=== PATIENT | male | born 1985 | race Caucasian/White ===

== ENCOUNTER 2017-10-19 23:39 | Emergency (ER) | payer SELFPAY, OTHER | END 2017-10-20 03:30 | disposition left against medical advice (07) | LOC: FTE 23:39 | DX: Z53.21 Procedure and treatment not carried out due to patient leaving prior to being seen by health care provider (principal) ==

== ENCOUNTER 2018-05-18 22:02 | Emergency (ER) | payer OTHER ==
[2018-05-19 02:09] LABS: ADD MAN DIFF? NO
[2018-05-19] MEDS: KETOROLAC 60 MG INJ IM (02:09)
[2018-05-19 02:13] LABS: BASOPHILS % 0.3 % (0.0-2.0); EOSINOPHILS % 0.1 % (0.0-7.0); HEMATOCRIT 45.1 % (42.0-52.0); HEMOGLOBIN 15.5 g/dl (14.0-18.0); LYMPHOCYTES # 1.4 10^3/ul (0.8-2.9); LYMPHOCYTES % 10.6 % (15.0-51.0); MEAN CORPUSCULAR HEMOGLOBIN 30.8 pg (29.0-33.0); MEAN CORPUSCULAR HGB CONC 34.4 g/dl (32.0-37.0); MEAN CORPUSCULAR VOLUME 89.5 fl (82.0-101.0); MEAN PLATELET VOLUME 10.9 fl (7.4-10.4); MONOCYTES % 7.5 % (0.0-11.0); NEUTROPHIL # 10.5 10^3/ul (1.6-7.5); NEUTROPHILS % 81.1 % (39.0-77.0); PLATELET COUNT 191 10^3/UL (140-415); RED BLOOD COUNT 5.04 10^6/ul (4.70-6.10); RED CELL DISTRIBUTION WIDTH 12.2 % (11.5-14.5)
[2018-05-19 02:15] LABS: ADD UMIC NO; UR ASCORBIC ACID NEGATIVE (NEGATIVE); UR BILIRUBIN (Dip) NEGATIVE (NEGATIVE); UR BLOOD (Dip) NEGATIVE (NEGATIVE); UR CLARITY CLEAR (CLEAR); UR COLOR STRAW (YELLOW); UR GLUCOSE (Dip) NEGATIVE (NEGATIVE); UR KETONES (Dip) 2+ mg/dL (NEGATIVE); UR LEUKOCYTE ESTERASE (Dip) NEGATIVE Leu/ul (NEGATIVE); UR NITRITE (Dip) NEGATIVE (NEGATIVE); UR SPECIFIC GRAVITY (Dip) 1.012 (1.003-1.030); UR TOTAL PROTEIN (Dip) NEGATIVE (NEGATIVE); UR UROBILINOGEN (Dip) NEGATIVE (NEGATIVE)
[2018-05-19 02:34] LABS: ALANINE AMINOTRANSFERASE 26 IU/L (13-69); ALBUMIN/GLOBULIN RATIO 1.38; ALKALINE PHOSPHATASE 75 IU/L (42-121); ANION GAP 18 (8-16); ASPARTATE AMINO TRANSFERASE 26 IU/L (15-46); BILIRUBIN,INDIRECT 2.2 mg/dl (0-1.1); BILIRUBIN,TOTAL 2.2 mg/dl (0.2-1.3); BLOOD UREA NITROGEN 18 mg/dl (7-20); CALCIUM 9.8 mg/dl (8.4-10.2); CARBON DIOXIDE 26 mmol/L (21-31); CHLORIDE 101 mmol/L (97-110); CREATININE 1.27 mg/dl (0.61-1.24); GLUCOSE 112 mg/dl (70-220); LIPASE 37 U/L (23-300); POTASSIUM 4.4 mmol/L (3.5-5.1); SODIUM 141 mmol/L (135-144); TOTAL PROTEIN 8.6 g/dl (6.1-8.1)
== END 2018-05-19 04:19 | disposition home or self-care (01) ==
LOC: FTE 22:02
DX: N13.2 Hydronephrosis with renal and ureteral calculous obstruction (principal)
CPT/HCPCS: 36415; 74176; 80053; 81003; 83690; 85025; 96372; 99285-25

== ENCOUNTER 2018-08-15 05:06 | Inpatient (IN) | payer OTHER ==
[2018-08-15] MEDS: HYDROCODONE/APAP (5/325) TAB PO ×2 (06:55→20:54)
[2018-08-15] MEDS ORDERED: NACL 0.9% 3 ML SYG IV (07:00)
[2018-08-15] MEDS ORDERED: ONDANSETRON 4 MG INJ IV (07:00)
[2018-08-15] MEDS ORDERED: PHENAZOPYRIDINE 200 MG TAB PO (07:00)
[2018-08-15] MEDS ORDERED: ACETAMINOPHEN 650 MG SUPP PR (07:00)
[2018-08-15] MEDS: DEXTROSE 5%-0.45% NACL 1,000 ML IV (07:36)
[2018-08-15] MEDS: CEFTRIAXONE 1 GM/50 ML (PMX) 50 ML IVPB (07:37)
[2018-08-15 07:48] LABS: ADD MAN DIFF? NO
[2018-08-15 07:51] LABS: BASOPHILS % 0.4 % (0.0-2.0); EOSINOPHILS # 0.1 10^3/ul (0.0-0.5); EOSINOPHILS % 0.5 % (0.0-7.0); HEMATOCRIT 39.4 % (42.0-52.0); HEMOGLOBIN 13.4 g/dl (14.0-18.0); LYMPHOCYTES # 1.8 10^3/ul (0.8-2.9); MEAN CORPUSCULAR HEMOGLOBIN 30.4 pg (29.0-33.0); MEAN CORPUSCULAR VOLUME 89.3 fl (82.0-101.0); MEAN PLATELET VOLUME 10.8 fl (7.4-10.4); MONOCYTE # 0.9 10^3/ul (0.3-0.9); MONOCYTES % 8.7 % (0.0-11.0); NEUTROPHIL # 7.2 10^3/ul (1.6-7.5); PLATELET COUNT 166 10^3/UL (140-415); RED BLOOD COUNT 4.41 10^6/ul (4.70-6.10); RED CELL DISTRIBUTION WIDTH 12.6 % (11.5-14.5)
[2018-08-15 08:14] LABS: ALANINE AMINOTRANSFERASE 17 IU/L (13-69); ALBUMIN 4.3 g/dl (3.3-4.9); ALBUMIN/GLOBULIN RATIO 1.79; ALKALINE PHOSPHATASE 64 IU/L (42-121); ANION GAP 9 (5-13); ASPARTATE AMINO TRANSFERASE 18 IU/L (15-46); BILIRUBIN,INDIRECT 1.9 mg/dl (0-1.1); BILIRUBIN,TOTAL 1.9 mg/dl (0.2-1.3); BLOOD UREA NITROGEN 15 mg/dl (7-20); CALCIUM 9.2 mg/dl (8.4-10.2); CARBON DIOXIDE 29 mmol/L (21-31); CHLORIDE 104 mmol/L (97-110); CREATININE 1.27 mg/dl (0.61-1.24); Estimated GFR > 60 mL/min (>60); GLUCOSE 96 mg/dl (70-220); POTASSIUM 3.8 mmol/L (3.5-5.1); SODIUM 142 mmol/L (135-144); TOTAL PROTEIN 6.7 g/dl (6.1-8.1)
[2018-08-15] MEDS ORDERED: HEPARIN 5,000 UNIT/0.5 ML VIAL ×2 (08:23→19:41)
[2018-08-15] MEDS: HEPARIN 5,000 UNIT/1 ML VIAL SC ×2 (08:42→21:00)
[2018-08-15 10:10] LABS: ADD UMIC NO; UR ASCORBIC ACID NEGATIVE (NEGATIVE); UR BILIRUBIN (Dip) NEGATIVE (NEGATIVE); UR BLOOD (Dip) NEGATIVE (NEGATIVE); UR CLARITY CLEAR (CLEAR); UR COLOR STRAW (YELLOW); UR GLUCOSE (Dip) NEGATIVE (NEGATIVE); UR KETONES (Dip) 1+ mg/dL (NEGATIVE); UR LEUKOCYTE ESTERASE (Dip) NEGATIVE Leu/ul (NEGATIVE); UR NITRITE (Dip) NEGATIVE (NEGATIVE); UR SPECIFIC GRAVITY (Dip) 1.009 (1.003-1.030); UR TOTAL PROTEIN (Dip) NEGATIVE (NEGATIVE); UR UROBILINOGEN (Dip) NEGATIVE (NEGATIVE)
[2018-08-15 11:58] LABS: INR 1.03; PARTIAL THROMBOPLASTIN TIME 30.9 Sec (23.0-35.0); PROTIME 13.6 Sec (11.9-14.9); PT RATIO 1.1
[2018-08-15] MEDS: DEXTROSE 5%-LR 1,000 ML IV ×3 (13:27→20:54)
[2018-08-15] MEDS: TAMSULOSIN (SR) 0.4 MG CAP PO (20:53)
[2018-08-16] MEDS: DEXTROSE 5%-LR 1,000 ML IV ×3 (03:52→21:35)
[2018-08-16 05:08] LABS: ADD MAN DIFF? NO
[2018-08-16 05:25] LABS: BASOPHILS % 0.5 % (0.0-2.0); EOSINOPHILS # 0.1 10^3/ul (0.0-0.5); EOSINOPHILS % 2.1 % (0.0-7.0); HEMATOCRIT 35.3 % (42.0-52.0); HEMOGLOBIN 12.1 g/dl (14.0-18.0); LYMPHOCYTES % 32.3 % (15.0-51.0); MEAN CORPUSCULAR HEMOGLOBIN 31.2 pg (29.0-33.0); MEAN CORPUSCULAR HGB CONC 34.3 g/dl (32.0-37.0); MEAN PLATELET VOLUME 11.1 fl (7.4-10.4); MONOCYTE # 0.5 10^3/ul (0.3-0.9); MONOCYTES % 8.7 % (0.0-11.0); NEUTROPHIL # 3.5 10^3/ul (1.6-7.5); NEUTROPHILS % 56.1 % (39.0-77.0); PLATELET COUNT 161 10^3/UL (140-415); RED BLOOD COUNT 3.88 10^6/ul (4.70-6.10); RED CELL DISTRIBUTION WIDTH 12.8 % (11.5-14.5)
[2018-08-16 05:25] LABS: WHITE BLOOD COUNT 6.2 10^3/ul (4.8-10.8)
[2018-08-16 05:44] LABS: ANION GAP 8 (5-13); BLOOD UREA NITROGEN 11 mg/dl (7-20); CALCIUM 8.6 mg/dl (8.4-10.2); CARBON DIOXIDE 28 mmol/L (21-31); CHLORIDE 108 mmol/L (97-110); CREATININE 0.98 mg/dl (0.61-1.24); Estimated GFR > 60 mL/min (>60); GLUCOSE 99 mg/dl (70-220); MAGNESIUM 2.1 mg/dl (1.7-2.5); PHOSPHORUS 4.6 mg/dl (2.5-4.9); POTASSIUM 4.1 mmol/L (3.5-5.1); SODIUM 144 mmol/L (135-144)
[2018-08-16] MEDS: CEFTRIAXONE 1 GM/50 ML (PMX) 50 ML IVPB (06:03)
[2018-08-16] MEDS: HEPARIN 5,000 UNIT/1 ML VIAL SC ×2 (09:00→21:00)
[2018-08-16] MEDS: HYDROCODONE/APAP (5/325) TAB PO ×3 (12:08→21:18)
[2018-08-16] MEDS: AMPICILLIN/SULB 3 GM/NS (PMX) 100 ML IVPB ×2 (14:11→18:33)
[2018-08-16] MEDS: CIPROFLOXACIN 400MG/D5W 200 ML IVPB ×2 (15:41→22:47)
[2018-08-16] MEDS: TAMSULOSIN (SR) 0.4 MG CAP PO (21:18)
[2018-08-17] MEDS: AMPICILLIN/SULB 3 GM/NS (PMX) 100 ML IVPB ×3 (00:34→11:46)
[2018-08-17] MEDS: DEXTROSE 5%-LR 1,000 ML IV ×3 (00:39→17:55)
[2018-08-17] MEDS: HYDROCODONE/APAP (5/325) TAB PO (06:01)
[2018-08-17] MEDS: HEPARIN 5,000 UNIT/1 ML VIAL SC ×2 (09:00→20:17)
[2018-08-17] MEDS: CIPROFLOXACIN 400MG/D5W 200 ML IVPB (09:24)
[2018-08-17] MEDS: DOCUSATE SODIUM 100 MG CAP PO (20:17)
[2018-08-17] MEDS: POLYETHYLENE GLYCOL 17 GM PACKET PO (20:18)
[2018-08-17] MEDS: TAMSULOSIN (SR) 0.4 MG CAP PO (21:00)
[2018-08-18] MEDS: DEXTROSE 5%-LR 1,000 ML IV ×5 (00:30→20:30)
[2018-08-18 05:44] LABS: ADD MAN DIFF? NO
[2018-08-18 05:46] LABS: WHITE BLOOD COUNT 5.8 10^3/ul (4.8-10.8)
[2018-08-18 05:46] LABS: BASOPHILS % 0.7 % (0.0-2.0); EOSINOPHILS # 0.2 10^3/ul (0.0-0.5); EOSINOPHILS % 3.1 % (0.0-7.0); HEMATOCRIT 37.7 % (42.0-52.0); LYMPHOCYTES # 1.7 10^3/ul (0.8-2.9); LYMPHOCYTES % 28.6 % (15.0-51.0); MEAN CORPUSCULAR HEMOGLOBIN 31.2 pg (29.0-33.0); MEAN CORPUSCULAR HGB CONC 34.5 g/dl (32.0-37.0); MEAN CORPUSCULAR VOLUME 90.4 fl (82.0-101.0); MEAN PLATELET VOLUME 10.6 fl (7.4-10.4); MONOCYTE # 0.4 10^3/ul (0.3-0.9); MONOCYTES % 7.6 % (0.0-11.0); NEUTROPHIL # 3.5 10^3/ul (1.6-7.5); NEUTROPHILS % 59.8 % (39.0-77.0); PLATELET COUNT 177 10^3/UL (140-415); RED BLOOD COUNT 4.17 10^6/ul (4.70-6.10); RED CELL DISTRIBUTION WIDTH 12.3 % (11.5-14.5)
[2018-08-18] MEDS: HYDROCODONE/APAP (5/325) TAB PO ×2 (06:03→23:05)
[2018-08-18 06:34] LABS: MAGNESIUM 1.8 mg/dl (1.7-2.5)
[2018-08-18 06:34] LABS: PHOSPHORUS 4.6 mg/dl (2.5-4.9)
[2018-08-18 06:35] LABS: ANION GAP 7 (5-13); BLOOD UREA NITROGEN 7 mg/dl (7-20); CALCIUM 9.1 mg/dl (8.4-10.2); CARBON DIOXIDE 35 mmol/L (21-31); CHLORIDE 100 mmol/L (97-110); CREATININE 0.91 mg/dl (0.61-1.24); Estimated GFR > 60 mL/min (>60); GLUCOSE 101 mg/dl (70-220); SODIUM 142 mmol/L (135-144)
[2018-08-18] MEDS: POLYETHYLENE GLYCOL 17 GM PACKET PO ×2 (08:23→22:55)
[2018-08-18] MEDS: DOCUSATE SODIUM 100 MG CAP PO ×2 (08:23→23:05)
[2018-08-18] MEDS: HEPARIN 5,000 UNIT/1 ML VIAL SC ×2 (08:24→21:00)
[2018-08-18] MEDS ORDERED: HEPARIN 5,000 UNIT/0.5 ML VIAL (19:32)
[2018-08-18] MEDS ORDERED: MEPERIDINE 25 MG INJ IV (20:00)
[2018-08-18] MEDS ORDERED: ONDANSETRON 4 MG INJ IV (20:00)
[2018-08-18] MEDS ORDERED: FENTAnyl 50 MCG/ML VIAL IV ×3 (20:00)
[2018-08-18] MEDS ORDERED: LABETALOL HCL 20MG INJ IV (20:00)
[2018-08-18] MEDS ORDERED: DIPHENHYDRAMINE 50 MG INJ IV (20:00)
[2018-08-18] MEDS ORDERED: HYDROmorphONE 1 MG/5 ML IV SYRINGE IV ×3 (20:00)
[2018-08-18] MEDS ORDERED: hydrALAzine 20 MG INJ IV (20:00)
[2018-08-18] MEDS ORDERED: PROPOFOL 20 ML (20:18)
[2018-08-18] MEDS ORDERED: MIDAZOLAM 1 MG/ML 2 ML INJ (20:18)
[2018-08-18] MEDS ORDERED: CEFAZOLIN 1 GM INJ (20:18)
[2018-08-18] MEDS ORDERED: FENTAnyl 50 MCG/ML VIAL ×2 (20:18→20:58)
[2018-08-18] MEDS ORDERED: KETOROLAC 30 MG INJ (20:59)
[2018-08-18] MEDS ORDERED: ONDANSETRON 4 MG INJ (20:59)
[2018-08-18] MEDS ORDERED: METOCLOPRAMIDE 10 MG INJ (21:00)
[2018-08-18] MEDS ORDERED: DEXAMETHASONE 4 MG/ML 1 ML INJ (21:00)
[2018-08-18] MEDS: SOD CHLORIDE 0.9% 1,000 ML IV (23:05)
[2018-08-19] MEDS ORDERED: HEPARIN 5,000 UNIT/0.5 ML VIAL (08:45)
[2018-08-19] MEDS: HEPARIN 5,000 UNIT/1 ML VIAL SC ×2 (08:56→20:16)
[2018-08-19] MEDS: morphine 2 MG INJ IV ×3 (08:57→20:16)
[2018-08-19] MEDS: POLYETHYLENE GLYCOL 17 GM PACKET PO ×2 (09:00→20:15)
[2018-08-19] MEDS: DOCUSATE SODIUM 100 MG CAP PO ×2 (09:00→20:15)
[2018-08-19] MEDS: SOD CHLORIDE 0.9% 1,000 ML IV (12:57)
[2018-08-19] MEDS: KETOROLAC 30 MG INJ IV ×2 (12:59→20:17)
[2018-08-19 15:17] LABS: ADD MAN DIFF? NO
[2018-08-19 15:25] LABS: BASOPHILS % 0.2 % (0.0-2.0); HEMATOCRIT 39.9 % (42.0-52.0); HEMOGLOBIN 13.9 g/dl (14.0-18.0); LYMPHOCYTES # 1.2 10^3/ul (0.8-2.9); LYMPHOCYTES % 7.8 % (15.0-51.0); MEAN CORPUSCULAR HGB CONC 34.8 g/dl (32.0-37.0); MEAN CORPUSCULAR VOLUME 89.1 fl (82.0-101.0); MEAN PLATELET VOLUME 10.8 fl (7.4-10.4); MONOCYTE # 0.8 10^3/ul (0.3-0.9); MONOCYTES % 4.8 % (0.0-11.0); NEUTROPHIL # 13.8 10^3/ul (1.6-7.5); NEUTROPHILS % 86.7 % (39.0-77.0); PLATELET COUNT 201 10^3/UL (140-415); RED BLOOD COUNT 4.48 10^6/ul (4.70-6.10)
[2018-08-19 15:42] LABS: ANION GAP 12 (5-13); BLOOD UREA NITROGEN 15 mg/dl (7-20); CALCIUM 9.1 mg/dl (8.4-10.2); CARBON DIOXIDE 25 mmol/L (21-31); CHLORIDE 105 mmol/L (97-110); CREATININE 0.82 mg/dl (0.61-1.24); Estimated GFR > 60 mL/min (>60); GLUCOSE 126 mg/dl (70-220); SODIUM 142 mmol/L (135-144)
[2018-08-19 15:51] LABS: MAGNESIUM 1.8 mg/dl (1.7-2.5)
[2018-08-19 15:51] LABS: PHOSPHORUS 3.7 mg/dl (2.5-4.9)
[2018-08-20] MEDS: morphine 2 MG INJ IV ×2 (00:30→08:28)
[2018-08-20] MEDS: SOD CHLORIDE 0.9% 1,000 ML IV (02:15)
[2018-08-20] MEDS: KETOROLAC 30 MG INJ IV ×2 (02:15→08:29)
[2018-08-20] MEDS ORDERED: HEPARIN 5,000 UNIT/0.5 ML VIAL (07:53)
[2018-08-20] MEDS: POLYETHYLENE GLYCOL 17 GM PACKET PO (08:29)
[2018-08-20] MEDS: DOCUSATE SODIUM 100 MG CAP PO (08:29)
[2018-08-20] MEDS: HEPARIN 5,000 UNIT/1 ML VIAL SC (08:41)
== END 2018-08-20 13:25 | disposition home or self-care (01) | DRG 660 ==
LOC: PP2 05:06
PROC: 0TC68ZZ Extirpation of Matter from Right Ureter, Via Natural or Artificial Opening Endoscopic (ICD-10-PCS; 2018-08-18 17:30)
PROC: 0T768DZ Dilation of Right Ureter with Intraluminal Device, Via Natural or Artificial Opening Endoscopic (ICD-10-PCS; principal; 2018-08-18 20:31)
DX: N20.2 Calculus of kidney with calculus of ureter (principal); N17.9 Acute kidney failure, unspecified; N39.0 Urinary tract infection, site not specified; B95.2 Enterococcus as the cause of diseases classified elsewhere
CPT/HCPCS: 71045; 74018; 74430; 80048; 80053; 81003; 83735; 84100; 85025; 85610; 85730; 87086; 88300

== ENCOUNTER 2018-08-25 04:30 | Emergency (ER) | payer OTHER ==
[2018-08-25] MEDS: SOD CHLORIDE 0.9% 1,000 ML IV (05:26)
[2018-08-25] MEDS: ONDANSETRON 4 MG INJ IV (05:27)
[2018-08-25] MEDS: morphine 4 MG/ML VIAL IV (05:27)
[2018-08-25 05:38] LABS: ADD MAN DIFF? NO
[2018-08-25 05:49] LABS: BASOPHILS % 0.5 % (0.0-2.0); EOSINOPHILS # 0.1 10^3/ul (0.0-0.5); EOSINOPHILS % 1.9 % (0.0-7.0); HEMATOCRIT 40.1 % (42.0-52.0); LYMPHOCYTES # 1.4 10^3/ul (0.8-2.9); LYMPHOCYTES % 23.8 % (15.0-51.0); MEAN CORPUSCULAR HEMOGLOBIN 31.3 pg (29.0-33.0); MEAN CORPUSCULAR HGB CONC 34.9 g/dl (32.0-37.0); MEAN CORPUSCULAR VOLUME 89.5 fl (82.0-101.0); MEAN PLATELET VOLUME 11.2 fl (7.4-10.4); MONOCYTE # 0.5 10^3/ul (0.3-0.9); MONOCYTES % 8.6 % (0.0-11.0); NEUTROPHIL # 3.9 10^3/ul (1.6-7.5); NEUTROPHILS % 64.9 % (39.0-77.0); POSITIVE DIFF @See below; RED BLOOD COUNT 4.48 10^6/ul (4.70-6.10); RED CELL DISTRIBUTION WIDTH 12.6 % (11.5-14.5)
[2018-08-25 05:49] LABS: WHITE BLOOD COUNT 5.9 10^3/ul (4.8-10.8)
[2018-08-25 05:56] LABS: PLATELET COUNT 148 10^3/UL (140-415)
[2018-08-25 06:39] LABS: ALANINE AMINOTRANSFERASE 21 IU/L (13-69); ALBUMIN 4.2 g/dl (3.3-4.9); ALBUMIN/GLOBULIN RATIO 1.55; ALKALINE PHOSPHATASE 63 IU/L (42-121); ANION GAP 10 (5-13); ASPARTATE AMINO TRANSFERASE 20 IU/L (15-46); BILIRUBIN,INDIRECT 1.3 mg/dl (0-1.1); BILIRUBIN,TOTAL 1.3 mg/dl (0.2-1.3); BLOOD UREA NITROGEN 20 mg/dl (7-20); CALCIUM 8.8 mg/dl (8.4-10.2); CARBON DIOXIDE 29 mmol/L (21-31); CHLORIDE 105 mmol/L (97-110); CREATININE 1.05 mg/dl (0.61-1.24); Estimated GFR > 60 mL/min (>60); GLUCOSE 95 mg/dl (70-220); LIPASE 67 U/L (23-300); POTASSIUM 4.2 mmol/L (3.5-5.1); SODIUM 144 mmol/L (135-144); TOTAL PROTEIN 6.9 g/dl (6.1-8.1)
== END 2018-08-25 09:57 | disposition home or self-care (01) ==
LOC: E/R 04:30
DX: R10.9 Unspecified abdominal pain (principal)
CPT/HCPCS: 36415; 74176; 76856; 80053; 83690; 85025; 96374; 96375; 99285-25

== ENCOUNTER 2018-08-30 10:11 | Emergency (ER) | payer OTHER ==
[2018-08-30 11:04] LABS: URINE BLOOD (Dip) POC Trace-intact (NEGATIVE); URINE GLUCOSE (Dip) POC Negative (NEGATIVE); URINE KETONES (Dip) POC Negative (NEGATIVE); URINE LEUKOCYTE EST (Dip) POC Negative (NEGATIVE); URINE NITRITE (Dip) POC Negative (NEGATIVE); URINE TOTAL PROTEIN POC Negative (NEGATIVE)
[2018-08-30] MEDS: DEXAMETHASONE 10 MG/ML 1 ML INJ IV (11:05)
[2018-08-30] MEDS: DIPHENHYDRAMINE 50 MG INJ IV (11:05)
== END 2018-08-30 12:11 | disposition home or self-care (01) ==
LOC: FTE 10:11
DX: L29.9 Pruritus, unspecified (principal); T36.8X5A Adverse effect of other systemic antibiotics, initial encounter
CPT/HCPCS: 81003; 96374; 96375; 99284-25

== ENCOUNTER 2018-10-16 20:24 | Emergency (ER) | payer OTHER ==
[2018-10-16] MEDS: ONDANSETRON 4 MG INJ IV (21:30)
[2018-10-16] MEDS: morphine 4 MG/ML VIAL IV (21:30)
[2018-10-16] MEDS: SOD CHLORIDE 0.9% 1,000 ML IV (21:30)
[2018-10-16] MEDS: KETOROLAC 30 MG INJ IV (21:30)
[2018-10-16 21:32] LABS: ADD MAN DIFF? NO
[2018-10-16 21:34] LABS: WHITE BLOOD COUNT 7.4 10^3/ul (4.8-10.8)
[2018-10-16 21:34] LABS: BASOPHIL # 0.1 10^3/ul (0.0-0.1); BASOPHILS % 0.7 % (0.0-2.0); EOSINOPHILS # 0.1 10^3/ul (0.0-0.5); EOSINOPHILS % 0.8 % (0.0-7.0); HEMATOCRIT 43.6 % (42.0-52.0); HEMOGLOBIN 14.9 g/dl (14.0-18.0); LYMPHOCYTES # 2.3 10^3/ul (0.8-2.9); LYMPHOCYTES % 30.2 % (15.0-51.0); MEAN CORPUSCULAR HGB CONC 34.2 g/dl (32.0-37.0); MEAN CORPUSCULAR VOLUME 90.6 fl (82.0-101.0); MEAN PLATELET VOLUME 10.7 fl (7.4-10.4); MONOCYTE # 0.7 10^3/ul (0.3-0.9); NEUTROPHIL # 4.4 10^3/ul (1.6-7.5); PLATELET COUNT 210 10^3/UL (140-415); RED BLOOD COUNT 4.81 10^6/ul (4.70-6.10); RED CELL DISTRIBUTION WIDTH 12.7 % (11.5-14.5)
[2018-10-16 21:37] LABS: ADD UMIC NO; UR ASCORBIC ACID NEGATIVE (NEGATIVE); UR BILIRUBIN (Dip) NEGATIVE (NEGATIVE); UR BLOOD (Dip) NEGATIVE (NEGATIVE); UR CLARITY CLEAR (CLEAR); UR COLOR YELLOW (YELLOW); UR GLUCOSE (Dip) NEGATIVE (NEGATIVE); UR KETONES (Dip) NEGATIVE (NEGATIVE); UR LEUKOCYTE ESTERASE (Dip) NEGATIVE Leu/ul (NEGATIVE); UR NITRITE (Dip) NEGATIVE (NEGATIVE); UR SPECIFIC GRAVITY (Dip) 1.015 (1.003-1.030); UR TOTAL PROTEIN (Dip) NEGATIVE (NEGATIVE); UR UROBILINOGEN (Dip) 1+ mg/dL (NEGATIVE)
[2018-10-16 21:50] LABS: ALANINE AMINOTRANSFERASE 33 IU/L (13-69); ALBUMIN 5.4 g/dl (3.3-4.9); ALBUMIN/GLOBULIN RATIO 1.58; ALKALINE PHOSPHATASE 86 IU/L (42-121); AMYLASE 126 U/L (11-123); ANION GAP 12 (5-13); ASPARTATE AMINO TRANSFERASE 28 IU/L (15-46); BILIRUBIN,INDIRECT 1.2 mg/dl (0-1.1); BILIRUBIN,TOTAL 1.2 mg/dl (0.2-1.3); BLOOD UREA NITROGEN 17 mg/dl (7-20); CALCIUM 10.1 mg/dl (8.4-10.2); CARBON DIOXIDE 30 mmol/L (21-31); CHLORIDE 99 mmol/L (97-110); CREATININE 0.77 mg/dl (0.61-1.24); Estimated GFR > 60 mL/min (>60); GLUCOSE 105 mg/dl (70-220); LIPASE 87 U/L (23-300); POTASSIUM 3.6 mmol/L (3.5-5.1); SODIUM 141 mmol/L (135-144); TOTAL PROTEIN 8.8 g/dl (6.1-8.1)
== END 2018-10-16 22:55 | disposition home or self-care (01) ==
LOC: FTE 20:24
DX: R10.9 Unspecified abdominal pain (principal)
CPT/HCPCS: 76775; 80053; 81003; 82150; 83690; 85025; 96374; 96375; 99285-25

== ENCOUNTER 2018-12-10 23:06 | Emergency (ER) | payer OTHER ==
[2018-12-11 02:02] LABS: ADD MAN DIFF? NO
[2018-12-11 02:04] LABS: WHITE BLOOD COUNT 7.3 10^3/ul (4.8-10.8)
[2018-12-11 02:04] LABS: BASOPHILS % 0.3 % (0.0-2.0); EOSINOPHILS # 0.1 10^3/ul (0.0-0.5); HEMATOCRIT 45.1 % (42.0-52.0); HEMOGLOBIN 15.2 g/dl (14.0-18.0); LYMPHOCYTES # 1.9 10^3/ul (0.8-2.9); MEAN CORPUSCULAR HEMOGLOBIN 30.8 pg (29.0-33.0); MEAN CORPUSCULAR HGB CONC 33.7 g/dl (32.0-37.0); MEAN CORPUSCULAR VOLUME 91.3 fl (82.0-101.0); MEAN PLATELET VOLUME 10.5 fl (7.4-10.4); MONOCYTE # 0.6 10^3/ul (0.3-0.9); MONOCYTES % 8.2 % (0.0-11.0); NEUTROPHIL # 4.7 10^3/ul (1.6-7.5); NEUTROPHILS % 64.2 % (39.0-77.0); PLATELET COUNT 214 10^3/UL (140-415); RED BLOOD COUNT 4.94 10^6/ul (4.70-6.10); RED CELL DISTRIBUTION WIDTH 12.2 % (11.5-14.5)
[2018-12-11 02:18] LABS: ADD UMIC YES; UR AMORPHOUS CRYSTAL FEW /HPF (NONE SEEN); UR ASCORBIC ACID NEGATIVE (NEGATIVE); UR BACTERIA FEW /HPF (NONE SEEN); UR BILIRUBIN (Dip) NEGATIVE (NEGATIVE); UR BLOOD (Dip) NEGATIVE (NEGATIVE); UR CLARITY CLOUDY (CLEAR); UR COLOR YELLOW (YELLOW); UR GLUCOSE (Dip) NEGATIVE (NEGATIVE); UR KETONES (Dip) NEGATIVE (NEGATIVE); UR LEUKOCYTE ESTERASE (Dip) NEGATIVE Leu/ul (NEGATIVE); UR NITRITE (Dip) NEGATIVE (NEGATIVE); UR RBC 2 /HPF (0-5); UR SPECIFIC GRAVITY (Dip) 1.017 (1.003-1.030); UR TOTAL PROTEIN (Dip) NEGATIVE (NEGATIVE); UR UROBILINOGEN (Dip) NEGATIVE (NEGATIVE); UR WBC 5 /HPF (0-5)
[2018-12-11] MEDS: ONDANSETRON (ODT) 4 MG TAB ODT (02:23)
[2018-12-11 02:40] LABS: ALANINE AMINOTRANSFERASE 14 IU/L (13-69); ALBUMIN 4.6 g/dl (3.3-4.9); ALBUMIN/GLOBULIN RATIO 1.48; ALKALINE PHOSPHATASE 74 IU/L (42-121); ANION GAP 9 (5-13); ASPARTATE AMINO TRANSFERASE 19 IU/L (15-46); BILIRUBIN,INDIRECT 0.8 mg/dl (0-1.1); BILIRUBIN,TOTAL 0.8 mg/dl (0.2-1.3); BLOOD UREA NITROGEN 22 mg/dl (7-20); CALCIUM 9.8 mg/dl (8.4-10.2); CARBON DIOXIDE 28 mmol/L (21-31); CHLORIDE 107 mmol/L (97-110); Estimated GFR > 60 mL/min (>60); GLUCOSE 99 mg/dl (70-220); LIPASE 86 U/L (23-300); POTASSIUM 4.1 mmol/L (3.5-5.1); SODIUM 144 mmol/L (135-144); TOTAL PROTEIN 7.7 g/dl (6.1-8.1)
== END 2018-12-11 04:15 | disposition home or self-care (01) ==
LOC: E/R 23:06
DX: M79.10 Myalgia, unspecified site (principal); R11.0 Nausea
CPT/HCPCS: 36415; 76775; 80053; 81001; 83690; 85025; 99284-25

== ENCOUNTER 2019-02-01 15:28 | Emergency (ER) | payer OTHER | END 2019-02-01 20:00 | disposition home or self-care (01) | LOC: FTE 15:28 | DX: K92.1 Melena (principal) | CPT/HCPCS: 99283; Z7502 ==

== ENCOUNTER 2019-05-22 23:48 | Emergency (ER) | payer OTHER ==
[2019-05-23] MEDS: IBUPROFEN 800 MG TAB PO (02:18)
[2019-05-23] MEDS: METHOCARBAMOL 750 MG TAB PO (02:43)
== END 2019-05-23 03:26 | disposition home or self-care (01) ==
LOC: FTE 23:48
DX: M54.2 Cervicalgia (principal); M54.5 Low back pain
CPT/HCPCS: 72040; 72072; 72100; 99283-25

== ENCOUNTER 2019-06-14 12:06 | Emergency (ER) | payer OTHER ==
[2019-06-14] MEDS: KETOROLAC 30 MG INJ IM (14:41)
== END 2019-06-14 15:05 | disposition home or self-care (01) ==
LOC: FTE 15:05
DX: R10.9 Unspecified abdominal pain (principal)
CPT/HCPCS: 81003; 96372; 99284-25